=== PATIENT | male | born 1940 | race Caucasian/White ===

== ENCOUNTER 2016-06-14 12:46 | Inpatient (IN) ==
[2016-06-14 13:39] LABS: Basophils # 0.2 10*3/uL (0.0-0.2); Basophils % 0.1 % (0.0-0.8); Eosinophils # 0.1 10*3/uL (0.0-0.87); Eosinophils % 0.1 % (0.00-10.9); Hematocrit 29.9 VOL% (42.0-52.0); Hemoglobin 9.6 GM/DL (14.0-18.0); Immature Granulocytes Absolute 2.97 #; Lymphocytes # 12.8 10*3/uL (1.4-4.0); Lymphocytes % 8.5 % (21.2-54.2); Mean Corpuscular HGB Conc 32.1 GM/DL (32-36); Mean Corpuscular Hemoglobin 27 PG (27-34); Mean Corpuscular Volume 82.6 FL (87-102); Mean Platelet Volume 10.1 FL (9.6-12.0); Monocytes # 128.8 10*3/uL (0.11-0.8); NRBC # 0.17 10*3/uL; Neutrophils % 3.3 % (38.7-73.9); Platelet Count 140 T/CUMM (130-400); Red Blood Count 3.62 MC/CUMM (3.8-5.5); Red Cell Distribution Width 23.9 % (9.3-17.3)
--- NOTE | 2016-06-14 13:43 | XRay Report ---
Exam: XR chest 1V portable Date: 06/14/2016 1:24 PM Indication: Shortness of breath Comparison: None Technical: AP portable Findings: Mild cardiomegaly with ASVD present. No obvious consolidating infiltrate or effusion. A few granuloma changes are suspected in the perihilar regions. No obvious pneumothorax. ASVD is present. Small hiatal hernia is also present with double density. Impression: 1. Hiatal hernia 2. Granuloma changes 3. Cardiomegaly without decompensation PROCEDURE INTERPRETED AT [facility] DEPARTMENT OF RADIOLOGY Final Report Signed by: Dr. Ángel Aguirre
--- NOTE | 2016-06-14 13:56 | EKG Report ---
Stationary ECG Study [facility] ER Test Date: 06/14/2016 1:54:05 PM Pat Name: TUCKER FIERRO Department: Room: Gender: M Associate Field Service Engineer: LUIS : 1940 Requested by: Tony Brown Order Number: [id number] Reading MD: VENANCIO SYLVESTER Intervals [place]ts Rate: 83 P: 88 OR: 144 QRS: 72 QRSD: 136 T: -9 QT: 421 QTc: 461 Interpretive Statements SINUS RHYTHM RIGHT BUNDLE BRANCH BLOCK Electronically Signed On 06-19-16 08:08:37 CDT by VENANCIO SYLVESTER [id number]
[2016-06-14 14:08] LABS: Albumin 3.1 G/DL (3.4-5.0); Calcium 8.1 MG/DL (8.5-10.1); Magnesium 2.2 MG/DL (1.8-2.4); Osmolality,Calculated 283.7 MOS/KG (273-304); Potassium 3.4 MMOL/L (3.5-5.1)
--- NOTE | 2016-06-14 15:51 | Emergency Department Note ---
IHowie Gwan, am scribing for, and in the presence of, Tony Hernández MD 13:36. IBetty Phillip K, MD, personally performed the services described in this documentation, ascribed by Casper Denise in my presence, and it is both accurate and complete 344 . Arrival - Arrival Chief Complaint: Weakness Stated Complaint: FEELS REAL BAD/RUNNING FEVER/RASH/SWEATING ED Nursing Triage Note: was seen by evonne garcia last week and had labwork done and told that they think he has leukemia. has appt with [facility] on but feeling worse and felt like he needed to be seen sooner. pt has a rash to both flanks chills fever off and on with sweats. color is pale in triage. no appetite Mode of Arrival: Ambulatory Limitations: No Limitations Source: Patient, Family, Old Records Reviewed, RN Notes Reviewed Time Seen by Provider: 06/14/16 13:23 - History of Present Illness HPI Narrative: Pt is a 76 y/o male, with a hx of HTN and anemia, who presents to the ED for further evaluation. Patient stated that he has been "feeling bad" with an onset 1-2 weeks ago. Patient report to PCP Dr. Hooks office and was seen by DIRECTOR CLINICAL DATA Evonne Garcia to receive blood work due to having sxs of chills, fever, diaphoresis, generalized weakness, skin becoming more pale than usual and loss of appetite. Pt's blood work resulted in possible for Leukemia and pt has an appt at [facility] on 06/21/2016. Patient's sxs have began to worsen prompting pt to report to ED for further evaluation. At time of triage, pt's temperature was 97.7. Family confirmed that has also developed a rash on his bilateral flank area and bilateral legs. Patient denies any N/V/D, sore throat or coughing. No other problems/complaints itelkee2c in ED. Onset (ago): week(s) Consistency: constant Severity: moderate Allergies/Adverse Reactions: Allergies Allergy/AdvReac Type Severity Reaction Status Date / Time doxycycline Allergy Unknown/Unable Verified 06/14/16 13:09 to obtain Home Medications: Home Medications Medication Instructions Recorded Confirmed Type Amlodipine Besylate 5 mg PO DAILY 06/14/16 06/14/16 History HYDROcodone/ACETAMIN 5-325 [[place] 1 tablet PO Q8H PRN 06/14/16 06/14/16 History 5-325] Ibuprofen Tab [Motrin Tab] 800 mg PO TID PRN 06/14/16 06/14/16 History Metoprolol Tartrate 25 mg PO BID 06/14/16 06/14/16 History Omeprazole 20 mg PO DAILY 06/14/16 06/14/16 History Saw [place]ve Fruit [Saw Brave] 450 mg PO DAILY 06/14/16 06/14/16 History Review of System - Review of System 12 point system: reviewed and no additional remarkable complaints except as stated - Review of System Constitutional: Present: as per HPI, chills, diaphoresis, fever Gastrointestinal: Present: as per HPI. Absent: nausea, vomiting, diarrhea Medical,Surgical,& Family Hx - Medical History Cardio: History of: Hypertension Gastrointestinal: History of: GI Problems (hiatal hernia) - Social History Smoking Status: Current every day smoker Exam Vital Signs: Vital Signs Temperature 97.7 F 06/14/16 12:58 Pulse Rate 84 06/14/16 14:00 Respiratory Rate 16 06/14/16 14:00 Blood Pressure 115/86 06/14/16 14:00 O2 Sat by Pulse Oximetry 96 06/14/16 14:00 - General General appearance: alert, in no apparent distress - Head Head exam: Present: atraumatic, normocephalic - Eye Eye exam: Present: PERRL, other (Pale conjunctiva) - ENT ENT exam: Present: mucous membranes moist (pale mucous membranes) - Neck Neck exam: Present: full ROM, trachea midline. Absent: tenderness, meningismus , lymphadenopathy, thyromegaly - Chest Chest inspection: Present: symmetric chest wall rise. Absent: tenderness - Respiratory Respiratory exam: Present: normal lung sounds bilaterally. Absent: respiratory distress - Cardiovascular Cardiovascular exam: Present: regular rate, normal rhythm, normal heart sounds. Absent: murmur, rubs, gallop - Abdominal Exam Abdominal exam: Present: soft, normal bowel sounds - Extremities Exam Extremities exam: Present: other (Raised maculopapular rash notd to bilateral lower extremities) - Back Exam Back exam: Present: full ROM, other (Raised maculopapular rash noted to bilateral lower flank area) - Neurological Exam Neurological exam: Present: alert, oriented X3, CN II-XII intact. Absent: motor sensory deficit - Psychiatric Psychiatric exam: Present: normal affect, normal mood - Skin Skin exam: Present: pallor, other (Raised maculopapular rash noted to bilateral flank area, bilateral lower extremities) Results - Labs CBC & BMP: 06/14/16 13:29 06/14/16 13:29 Lab Results: I have reviewed the patients labs Labs: Laboratory Tests 06/14/16 06/14/16 06/14/16 13:29 13:29 13:29 WBC 149.7 H* RBC 3.62 L Hgb 9.6 L Hct 29.9 L MCV 82.6 L RDW 23.9 H Plt Count 140 Neut % (Auto) 3.3 L Lymph % (Auto) 8.5 L [place] % (Auto) 86.0 H Lymph # (Auto) 12.8 H [place] # (Auto) 128.8 H Sodium 138 Potassium 3.4 L Chloride 104 Carbon Dioxide 25 BUN 36 H Creatinine 2.00 H Glucose 115 H Calcium 8.1 L AST 57 H ALT 81 H Alkaline Phosphatase 648 H B-Natriuretic Peptide 135 H Albumin 3.1 L Globulin 3.9 H Albumin/Globulin Ratio 0.7 L Disposition Clinical Impression: Anemia, Leukemia Case discussed with: patient, patient's family Disposition: Still a Patient Condition: Guarded Additional Instructions: Admit to Dr. Bone
[2016-06-14] MEDS ORDERED: LOPERAMIDE 2 MG CAPSULE PO PRN ×2 (17:10)
[2016-06-14] MEDS ORDERED: ACETAMINOPHEN 325 MG TABLET PO PRN (17:10)
[2016-06-14] MEDS ORDERED: ALPRAZolam 0.25 MG TABLET PO PRN (17:10)
[2016-06-14] MEDS ORDERED: PROMETHAZINE INJ 25 MG in SODIUM CHLORIDE 0.9% 50 ML IV PRN (17:10)
[2016-06-14] MEDS ORDERED: BENZTROPINE 2 MG/2 ML AMP IV PRN (17:10)
[2016-06-14] MEDS ORDERED: chlorproMAZINE 25 MG TABLET PO PRN (17:10)
[2016-06-14] MEDS ORDERED: chlorproMAZINE INJ 50 MG in SODIUM CHLORIDE 0.9% 100 ML IV PRN (17:10)
[2016-06-14] MEDS ORDERED: LACTULOSE 20 GM/30 ML UDCUP PO PRN (17:10)
[2016-06-14] MEDS ORDERED: MAGNESIUM HYDROXIDE SUSP 30 ML UDCUP PO PRN (17:10)
[2016-06-14] MEDS ORDERED: guaiFENesin 200 MG/10 ML UDCUP PO PRN (17:10)
[2016-06-14] MEDS ORDERED: MYLANTA/LIDO VISC 2:1 300 ML BOTTLE SWISH/SPIT PRN (17:10)
[2016-06-14] MEDS ORDERED: ONDANSETRON 4 MG/2 ML VIAL IV PRN (17:10)
[2016-06-14] MEDS ORDERED: diphenhydrAMINE CAP 25 MG CAPSULE PO PRN (17:10)
[2016-06-14] MEDS ORDERED: MYLANTA/LIDO VISC 2:1 300 ML BOTTLE SWISH/SWAL PRN (17:10)
[2016-06-14] MEDS ORDERED: chlorproMAZINE INJ 25 MG in SODIUM CHLORIDE 0.9% 100 ML IV PRN (17:10)
[2016-06-14] MEDS ORDERED: traMADol 50 MG TABLET PO PRN (17:10)
[2016-06-14] MEDS ORDERED: ALUMINUM/MAGNES/SIMETH MAX STR 30 ML UDCUP PO PRN (17:10)
[2016-06-14 17:19] LABS: White Blood Count 149.7 T/CUMM (4-12)
[2016-06-14 17:46] LABS: Magnesium 2.2 MG/DL (1.8-2.4); Uric Acid 12.6 MG/DL (3.5-7.2)
[2016-06-14] MEDS: SODIUM CHLORIDE 0.9% 1,000 ML IV SCH (17:56)
[2016-06-14 18:00] LABS: Band Neutrophils 1 % (0-10); Lymphocytes 20 % (20-55); Nucleated Red Blood Cells 2 (0-5); Promyelocytes 3 %; Segmented Neutrophils 4 % (50-85); Total Cells Counted 100
[2016-06-14 18:07] LABS: Platelet Estimate Normal
[2016-06-14 18:08] LABS: Smudge Cells Few
[2016-06-14 19:12] LABS: % Iron Saturation 34.5 % (18-50); Ferritin 1397.4 ng/ml (26-388)
[2016-06-14 19:58] LABS: INR 1.1; Partial Thromboplastin Time 28.2 SECS (0-40)
[2016-06-14] MEDS ORDERED: LEVOFLOXACIN INJ 500 MG in PREMIX 1 EACH IV ONE (20:00)
[2016-06-14 20:27] LABS: Apearance,Urine CLOUDY (Clear); Bilirubin,Urine Negative (Negative); Blood, Urine Small mg/dL (Negative); Glucose,Urine (UA) Negative (Negative); Granular Casts,Urine 6 /LPF (0-1); Hyaline Casts,Urine 3 /LPF (0-3); Ketones,Urine Negative (Negative); Mucus,Urine Occasional /LPF (Occasional); Nitrite,Urine Negative (Negative); Protein,Urine 30 MG/DL; RBC,Urine 1 /HPF (0-4); Squamous Epithelial Cell,Urine Occasional /HPF (0-10); Urine Color Yellow (Yellow); Urine Specific Gravity 1.012 (1.001-1.035); Urine Urobilinogen < 2.0 EU/DL (0.2-1.0); WBC,Urine 4 /HPF (0-6)
[2016-06-14] MEDS: METOPROLOL TARTRATE 25 MG TABLET PO SCH (20:54)
[2016-06-14] MEDS: TEMAZEPAM 7.5 MG CAPSULE PO PRN (20:58)
[2016-06-15 05:33] LABS: Basophils # 0.1 10*3/uL (0.0-0.2); Basophils % 0.1 % (0.0-0.8); Eosinophils # 0.1 10*3/uL (0.0-0.87); Eosinophils % 0.1 % (0.00-10.9); Hematocrit 25.6 VOL% (42.0-52.0); Hemoglobin 8.2 GM/DL (14.0-18.0); Immature Granulocytes % 1.9 %; Immature Granulocytes Absolute 2.07 #; Lymphocytes # 5.9 10*3/uL (1.4-4.0); Lymphocytes % 5.3 % (21.2-54.2); Mean Corpuscular Hemoglobin 26 PG (27-34); Mean Corpuscular Volume 81.3 FL (87-102); Mean Platelet Volume 10.7 FL (9.6-12.0); Monocytes # 99.6 10*3/uL (0.11-0.8); Monocytes % 89.2 % (1.7-12.7); NRBC # 0.15 10*3/uL; Neutrophils # 3.9 10*3/uL (1.4-7.4); Neutrophils % 3.4 % (38.7-73.9); Platelet Count 122 T/CUMM (130-400); Red Blood Count 3.15 MC/CUMM (3.8-5.5); Red Cell Distribution Width 23.7 % (9.3-17.3)
[2016-06-15 05:40] LABS: White Blood Count 111.6 T/CUMM (4-12)
[2016-06-15 06:12] LABS: Albumin 2.8 G/DL (3.4-5.0); Bilirubin,Total 1.1 MG/DL (0.2-1.0); Calcium 7.4 MG/DL (8.5-10.1); Osmolality,Calculated 291.1 MOS/KG (273-304); Potassium 3.6 MMOL/L (3.5-5.1); Total Protein 5.7 G/DL (6.4-8.3)
[2016-06-15 06:37] LABS: Lymphocytes 17 % (20-55); Segmented Neutrophils 15 % (50-85); Total Cells Counted 100
[2016-06-15 06:38] LABS: Hypochromasia 1+; Microcytosis 1+
[2016-06-15 06:39] LABS: Platelet Estimate Adequate
[2016-06-15] MEDS ORDERED: SODIUM CHLORIDE 0.9% 250 ML IV PRN (07:31)
--- NOTE | 2016-06-15 07:35 | Oncology History&Physical ---
Assessment and Plan (1) Leukocytosis Status: Acute Assessment and plan: He received his referral last week I was more concerned for CML given the he did not appear to have significant symptoms, his red blood cells and platelets were within normal range, and his white count is only around 70,000. The fact that he now feels much more week and his white count has rapidly increased over 100,000, makes me much more concerned for AML. They do see a few blasts on his peripheral smear which further points toward AML. He does not have DIC present so there is no reason to begin all trans-retinoic acid. We will set him up for a bone marrow biopsy today. He has stated that if AML was diagnosed, he will most likely choose hospice care only. At his age that is probably the wisest thing. I will give him 2 units of blood today. I will continue him on allopurinol since he has an elevated uric acid level. We will continue with IV fluid hydration. If his creatinine worsens further we may need to consider rasburicase. I will likely keep him in the hospital for a few days while we make a diagnosis. I have sent off his peripheral blood for BCR-ABL PCR. Current Visit: Yes (2) Weakness Status: Acute Current Visit: Yes (3) Anemia Status: Acute Current Visit: Yes (4) Leukemia Status: Acute Current Visit: Yes History of Present Illness History of present illness: Mr. Polanco is a 76 year old male who was found to have elevated white blood cell counts at an outside clinic 2 weeks ago. He was scheduled to see me in clinic last week but missed that appointment. He presented to the ER yesterday complaining of significant fatigue so we admitted him for further workup. His white blood cell count yesterday in the emergency room was 149,000. Of the cells, the predominant amount of them were read as monocytes with only a few blast. He states his symptoms of fatigue began a few weeks ago and has worsened recently. He states his appetite is very poor. He has lost almost 20 pounds in the last few months. His hemoglobin is mildly decreased. This morning it is down to 8.2 after aggressive IV fluid hydration. His platelet count is only mildly low. DIC panel does not show any evidence of DIC. His uric acid level was greater than 12. His creatinine is slightly elevated above 2. He is set to have a bone marrow biopsy later today. Home Medications Medication Instructions Recorded Confirmed Type Amlodipine Besylate 5 mg PO DAILY 06/14/16 06/14/16 History HYDROcodone/ACETAMIN 5-325 [[place] 1 tablet PO Q8H PRN 06/14/16 06/14/16 History 5-325] Ibuprofen Tab [Motrin Tab] 800 mg PO TID PRN 06/14/16 06/14/16 History Metoprolol Tartrate 25 mg PO BID 06/14/16 06/14/16 History Omeprazole 20 mg PO DAILY 06/14/16 06/14/16 History Saw [place] Fruit [Saw [place]] 450 mg PO DAILY 06/14/16 06/14/16 History Allergies Allergy/AdvReac Type Severity Reaction Status Date / Time doxycycline Allergy Unknown/Unable Verified 06/14/16 13:09 to obtain Medical,Surgical,& Family Hx - Medical History Cardio: History of: Hypertension Gastrointestinal: History of: GI Problems (hiatal hernia) Hematology: History of: Anemia - Surgical History Abdominal Surgeries: Surgical HX of: Hernia Repair (1969) - Family History Family History: Comment Only: Family Cancer (Mother- Unknown type), Family Heart Disease ( Father) - Social History Smoking Status: Former smoker Frequency of Alcohol Use: None Type of Drug Use: None 12 point system: reviewed and no additional remarkable complaints except as stated - Constitutional Constitutional: Present: fatigue, malaise, weight loss. Absent: chills, fever(s ) - Hematologic/Lymphatic Hematologic/Lymphatic: Absent: easy bleeding, easy bruising, lymphadenopathy Exam - Constitutional Vitals: Period Temp Pulse Resp BP Sys/Gao Pulse Ox Last 24 Hr 97.2 F-98.5 F 81-98 16-20 115-139/60-93 93-100 General appearance: normal weight, no acute distress - Head Head Exam: Present: normocephalic, atraumatic - Eye Eye Exam: Present: EOMI Pupils: Present: PERRL - ENT ENT exam: Present: normal exam, normal oropharynx - Neck Neck exam: Absent: lymphadenopathy, thyromegaly - Respiratory Respiratory exam: Present: CTAB. Absent: wheezes - Cardiovascular Cardiovascular exam: Present: RRR. Absent: JVD, tachycardia - GI/Abdominal GI/Abdominal exam: Present: soft, other (No splenomegaly palpated on exam). Absent: ascites, distended, firm, mass - Neurological Exam Neurological exam: Present: alert, oriented X3 - Psychiatric Psychiatric exam: Present: normal affect, normal mood - Skin Skin exam: Present: warm, dry Results - Labs CBC & BMP: 06/15/16 04:20 06/15/16 04:20 Lab Results: I have reviewed the past 24 hour labs
[2016-06-15] MEDS: SODIUM CHLORIDE 0.9% 1,000 ML IV SCH ×2 (08:42→20:43)
[2016-06-15] MEDS: ALLOPURINOL 100 MG TABLET PO SCH (08:45)
[2016-06-15] MEDS: PANTOPRAZOLE 40 MG TABLET PO SCH (08:45)
[2016-06-15] MEDS: METOPROLOL TARTRATE 25 MG TABLET PO SCH ×2 (08:45→20:39)
[2016-06-15] MEDS ORDERED: DIAZEPAM 5 MG TABLET PO ONE (10:22)
[2016-06-15] MEDS ORDERED: HEPARIN 5,000 UNIT/1 ML VIAL ONE (10:23)
--- NOTE | 2016-06-15 10:23 | IR History and Physical Update ---
IR Pre-Procedure - History and Physical H&P was reviewed, the patient examined and there: are no changes in the patients condition since last H&P was completed. Reason for procedure:: 76 yo M either AML or CML. Needs bone marrow aspirate. - Dictation Physical: refer to H&P completed by admitting physician - Physical Exam Vital Signs: Last Vital Signs Temp 97.9 F 06/15/16 07:10 Pulse 93 H 06/15/16 07:10 Resp 20 06/15/16 07:10 BP 152/91 06/15/16 07:10 Pulse Ox 95 06/15/16 07:10 Mental Status: alert and oriented - Sedation IR anesthesia plan for sedation: none ASA Class: III - Risks Risks: Procedures explained. Risks discussed include, but not limited to, the following:[ pain, bleeding] All questions answered. The following alternatives were discussed:[ none] Risks and benefits discussed with: patient Consent obtained from: patient Assessment and Plan - Time spent with patient Time spent with patient: Less than 30 minutes (1) Leukemia Status: Acute Assessment and plan: Plan marrow aspirate today. Current Visit: Yes
--- NOTE | 2016-06-15 12:29 | Post Interventional Procedure ---
Pre-op diagnosis: AML vs CML Post-op diagnosis: same Procedure: Bone marrow aspirate and bx, right iliac Radiologist: Luis Wall Anesthesia: local Specimens: other (marrow aspirate and core biopsy) Estimated blood loss: none Complications: none Condition: stable Assessment and Plan (1) Leukemia Status: Acute Assessment and plan: Plan marrow aspirate today. Current Visit: Yes
--- NOTE | 2016-06-15 13:37 | Interventional Radiology Rpt ---
IR bone marrow aspiration, IR Bone Marrow Biopsy, Consult to Interventional Rad Indication: AML versus CML. BONE MARROW BIOPSY- ASPIRATE Description: A formal timeout was performed. Fluoroscopic observation shows the right posterior iliac to be the best candidate for sampling from a posterior approach. With the patient prone on the fluoroscopy table, the overlying skin was prepped and draped in a sterile fashion. Skin was anesthetized with 5 cc 1% lidocaine, with lidocaine injected down to the periosteal surface. Under fluoroscopic observation, a 11 gauge Arrow guide needle was advanced to the periosteum. The outer cortex was gently penetrated with the bibi tip stylette needle. A "Arrow on Control" drill was then used to penetrate the cortex several millimeters. After removing the stylette, bone marrow aspirate was performed obtaining 11 cc of bone marrow, directly into a syringe prefilled with 2000 units heparin. Cytopathology received the bone marrow aspirate and determined it was an adequate sample. The drill was reattached and the coring needle advanced an additional 3 cm into the marrow space and then withdrawn in one motion. The 11-gauge biopsy specimen was then removed from the needle and handed to cytopathology. A bandage was placed at the puncture site. Patient tolerated the procedure well. Medications: None. Fluoroscopy: 1.1 minute minutes. Impression: Uncomplicated successful bone marrow biopsy and aspirate as described. PROCEDURE INTERPRETED AT [facility] DEPARTMENT OF RADIOLOGY Final Report Signed by: Luis Wall M.D.
[2016-06-15] MEDS ORDERED: LEVOFLOXACIN INJ 250 MG in PREMIX 1 EACH IV SCH (20:00)
[2016-06-15] MEDS: TEMAZEPAM 7.5 MG CAPSULE PO PRN (20:39)
[2016-06-16 05:24] LABS: Basophils # 0.1 10*3/uL (0.0-0.2); Basophils % 0.1 % (0.0-0.8); Eosinophils # 0.1 10*3/uL (0.0-0.87); Eosinophils % 0.1 % (0.00-10.9); Hemoglobin 9.6 GM/DL (14.0-18.0); Immature Granulocytes % 1.8 %; Immature Granulocytes Absolute 1.77 #; Lymphocytes # 4.7 10*3/uL (1.4-4.0); Lymphocytes % 4.8 % (21.2-54.2); Mean Corpuscular Hemoglobin 26 PG (27-34); Mean Corpuscular Volume 81.5 FL (87-102); Monocytes # 86.5 10*3/uL (0.11-0.8); Monocytes % 89.7 % (1.7-12.7); NRBC # 0.11 10*3/uL; Neutrophils # 3.3 10*3/uL (1.4-7.4); Neutrophils % 3.5 % (38.7-73.9); Platelet Count 100 T/CUMM (130-400); Red Blood Count 3.68 MC/CUMM (3.8-5.5); Red Cell Distribution Width 22.5 % (9.3-17.3)
[2016-06-16 05:33] LABS: White Blood Count 96.5 T/CUMM (4-12)
[2016-06-16 05:44] LABS: Folate 14.2 NG/ML (5.4-24.0)
[2016-06-16 05:58] LABS: Calcium 7.1 MG/DL (8.5-10.1); Osmolality,Calculated 289.1 MOS/KG (273-304); Potassium 3.2 MMOL/L (3.5-5.1)
[2016-06-16 06:20] LABS: Band Neutrophils 2 % (0-10); Lymphocytes 13 % (20-55); Segmented Neutrophils 9 % (50-85); Total Cells Counted 100
[2016-06-16 06:21] LABS: Hypochromasia 1+; Platelet Estimate Decreased
[2016-06-16 06:22] LABS: Microcytosis 1+; Smudge Cells Few
[2016-06-16 08:12] VITALS: BP 167/83
[2016-06-16] MEDS: ALLOPURINOL 100 MG TABLET PO SCH (09:07)
[2016-06-16] MEDS: PANTOPRAZOLE 40 MG TABLET PO SCH (09:08)
[2016-06-16] MEDS: METOPROLOL TARTRATE 25 MG TABLET PO SCH (09:08)
--- NOTE | 2016-06-16 09:27 | Discharge Summary ---
Hospital Course - Hospital Course Hospital Course: This is a 76-year-old white male recently found to have significant leukocytosis. He was admitted to the ER for generalized fatigue with a white blood cell count of 150,000. There are a few last seen on peripheral smear. He was mildly anemic. A bone marrow biopsy was done the next morning by interventional radiology. Results of this are still pending. After IV fluid rehydration his white blood cell count has decreased down to around 100,000. I recommended he stay in the hospital until we have a diagnosis so we can make a complete plan but he is adamant that he wants to go home and we can decide from there what he is going to do. If this turns out to be acute leukemia he will need hospice arrangements as he does not want to go through any type of treatment. If there is turned out to be CML he and I will discuss starting oral therapy. Given his clinical symptoms and his rapid increase in his white count over the last 2 weeks, this appears to be more like a AML situation but the limited number of blasts laying on peripheral smear makes that confusing. His bone marrow biopsy will be the answer. I did send off his peripheral blood for BCRABL. We will have lab the results of both of these studies in the early part of next week. I will write him a prescription for oxycodone. We will discharge him home today. Diagnosis - Discharge Diagnosis (1) Leukocytosis Status: Acute (2) Weakness Status: Acute (3) Anemia Status: Acute (4) Leukemia Status: Acute Discharge Plan - Discharge Data Disposition: Disch To Home/Self Care Condition at Discharge: Stable Discharge Diet: advance to your usual diet Activity: resume usual activities as tolerated Hygiene: no restrictions Driving: no restrictions - Discharge Medications Continue Omeprazole 20 mg PO DAILY Ibuprofen Tab [Motrin Tab] 800 mg PO TID PRN PRN Reason: Pain Amlodipine Besylate 5 mg PO DAILY Saw [place] Fruit [Saw [place]] 450 mg PO DAILY Metoprolol Tartrate 25 mg PO BID Changed HYDROcodone/ACETAMIN 5-325 [[place] 5-325] 1 - 2 tablet PO Q4H PRN #60 PRN Reason: Pain - Follow Up or Referral - Forms/Instructions Exam - Constitutional Vitals: Period Temp Pulse Resp BP Sys/Gao Pulse Ox Last 24 Hr 97.2 F-98.5 F 75-93 15-20 121-167/59-97 92-96 Discharge Results Procedures and tests throughout hospitalization: Pending Orders 06/15/16 06:51 BCR/ABL for PCR Routine Labs on day of discharge: Labs from last 24 hours 06/16/16 06/16/16 06/16/16 04:07 04:07 04:07 WBC 96.5 H* RBC 3.68 L Hgb 9.6 L Hct 30.0 L MCV 81.5 L MCH 26 L MCHC 32.0 RDW 22.5 H Plt Count 100 L MPV 10.0 Neut % (Auto) 3.5 L Lymph % (Auto) 4.8 L [place] % (Auto) 89.7 H Eos % (Auto) 0.1 Baso % (Auto) 0.1 Neut # (Auto) 3.3 Lymph # (Auto) 4.7 H [place] # (Auto) 86.5 H Eos # (Auto) 0.1 Baso # (Auto) 0.1 Total Counted 100 Immature Gran % 1.8 Nucleated RBC % 0.1 Immature Gran # 1.77 Segmented Neutrophils 9 L Band Neutrophils 2 Lymphocytes 13 L Monocytes 76 H Nucleated RBCs # 0.11 Smudge Cells Few Platelet Estimate Decreased Hypochromasia 1+ Microcytosis 1+ Morphology Comment Sodium 142 Potassium 3.2 L Chloride 106 Carbon Dioxide 25 Anion Gap 14.2 BUN 33 H Creatinine 1.80 H GFR Calculation 46 BUN/Creatinine Ratio 18.00 Glucose 103 Calculated Osmolality 289.1 Calcium 7.1 L Vitamin B12 830 Folate 14.2 Blood Type Antibody Screen Crossmatch 06/15/16 Unknown WBC RBC Hgb Hct MCV MCH MCHC RDW Plt Count MPV Neut % (Auto) Lymph % (Auto) [place] % (Auto) Eos % (Auto) Baso % (Auto) Neut # (Auto) Lymph # (Auto) [place] # (Auto) Eos # (Auto) Baso # (Auto) Total Counted Immature Gran % Nucleated RBC % Immature Gran # Segmented Neutrophils Band Neutrophils Lymphocytes Monocytes Nucleated RBCs # Smudge Cells Platelet Estimate Hypochromasia Microcytosis Morphology Comment Sodium Potassium Chloride Carbon Dioxide Anion Gap BUN Creatinine GFR Calculation BUN/Creatinine Ratio Glucose Calculated Osmolality Calcium Vitamin B12 Folate Blood Type O POSITIVE Antibody Screen Negative Crossmatch See Detail DS: Provider Date of admission: 06/14/16 13:49 Primary care physician: . No PCP Attending physician on admission: Avery Bone MD Consults: 06/14/16 19:20 Consult to Pharmacy [CONS] Routine Reason for Pharmacy Consult: Adjust Meds Renal Funct Discharging clinician: Avery Bone MD
[2016-06-16] MEDS: SODIUM CHLORIDE 0.9% 1,000 ML IV SCH (10:45)
--- NOTE | 2016-06-22 11:15 | Physician Query Form ---
CLICK EDIT DOCUMENT TO SELECT QUERY ANSWER --> OK --> SIGN Thi Mejias RN, CCDS Certified Clinical Mentally Impaired Teacher W) [phone] (f) [phone] [email or web address] PROVIDERS: Make your selection(s) from the choices in EACH section by typing an "x" and enter comments in the comment section. Please use your independent medical judgment in providing your response. This request does not imply that any particular answer is desired or expected. CLINICAL INDICATORS: (Providers should not edit this section) The medical record indicates that the patient was admitted anemia, creatinine of 2.0#, GFR of 40# and per discharge summary "after IV fluid rehydration his white blood cell count has decreased down to around 100,000". Clarify which of the following most accurately represents the patient's renal status: ( ) Acute kidney injury (non-traumatic) ( x) Acute renal failure ( ) Acute renal failure with underlying Chronic Kidney Disease (CKD) - please provide stage below ( ) Acute renal failure with pathological renal lesion ( ) Acute renal failure with necrosis ( ) tubular ( ) medullary ( ) cortical ( ) CKD - please provide stage below ( ) End Stage Renal Disease ( ) Acute interstitial nephritis ( ) Hepatorenal syndrome ( ) Other, please specify: ( ) Clinically unable to determine Chronic Kidney Disease Stages Source: National Kidney Disease Foundation ( ) Stage I (eGFR > or = 90) ( ) Stage II (eGFR 60 - 89) ( ) Stage III (eGFR 30 - 59) ( ) Stage IV (eGFR 15 - 29) ( ) Stage V (eGFR < 15 or dialysis) COMMENTS: Use of terms such as suspected, likely, or probable (associated with a specific diagnosis that is being evaluated, monitored, or treated as if it exists) are acceptable and can be restated in the discharge summary if not ruled out. MTDD
--- NOTE | 2016-06-27 10:47 | Pathology Report from [facility] ---
ACCESSION # : [id number] PATIENT NAME : Sony Polanco ORDERING DR : MORRO REYNOSO MD CLINICAL HX: Leukemia POST-OP DX: Same SPECIMEN INFO: BMB GROSS DESCRIPTION: Received is a bone marrow biopsy sent to [facility] for evaluation by the Hematology Department. 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 Flow cytometry shows markedly increased monocytes. Peripheral blood smears show marked monocytosis and increased blasts. 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 Cytogenetics and AML FISH show no clonal abnormalities. PCR for BCR/ABL, FLT3-ITD and FLT3-TKD mutations and MLL-PTD are negative. 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 Peripheral blood with marked leukocytosis with numerous circulating blasts and marked monocytosis, normochromic anemia and thrombocytopenia.FLOW CYTOMETRY : Bone marrow with marked monocytosis with aberrant antigen expression seen, suggestive of an acute myeloid leukemia.BCR-ABL t(9;22) Real-Time PCR: No BCR- ABL1 transcripts are detected.CYTOGENETICS/FISH: Chromosome analysis reveals a NORMAL male karyotype without apparent clonal aberrations.FLT3 MUTATION DETECTION BY PCR: NOT DETECTED for the FLT3 Internal Tandem Duplication (ITD); NOT DETECTED for the FLT3 TKD Mutation.MLL-PTD: NOT DETECTED for the MLL Partial Tandem Duplication (PTD). SERVICE DATE: 06/19/2016 REPORT DATE: 06/27/2016 PATHOLOGIST: Piper Haywood M.D. [facility]
--- NOTE | 2016-06-27 13:57 | Physician Query Form ---
CLICK EDIT DOCUMENT TO SELECT QUERY ANSWER --> OK --> SIGN PROVIDERS: Make your selection(s) from the choices in EACH section by typing an "x" and enter comments in the comment section. Please use your independent medical judgment in providing your response. This request does not imply that any particular answer is desired or expected. 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 Abnormal Pathology findings are not reported unless an authorized provider indicates their clinical significance Please select the best choice: ( x) I agree with the Pathology findings ( ) I disagree with the Pathology findings ( ) No clinical significance ( ) Other/clarification of findings, please specify: ( ) Clinically unable to determine COMMENTS: Use of terms such as suspected, likely, or probable (associated with a specific diagnosis that is being evaluated, monitored, or treated as if it exists) are acceptable and can be restated in the discharge summary if not ruled out. [facility]
== END 2016-06-16 11:15 | disposition home or self-care (01) | DRG 841 ==
LOC: N.ED 12:46 → N.EDINP 13:49 → N.4E 18:49
PROVIDERS: ADMIT Specialist; ATTEND Specialist